=== PATIENT | male | born 1960 | race Caucasian/White ===

== ENCOUNTER 2019-09-06 23:23 | Emergency (ER) | payer SELFPAY ==
[~2019-09-06] VITALS: Ht 185.4 cm; Wt 104.5 kg
[2019-09-06 23:35] VITALS: BP 135/88; PULSE 83; TEMP 99.1
[2019-09-07] MEDS ORDERED: NORCO 325 MG-51 TAB PO (18:26)
[2019-09-07] MEDS ORDERED: FLEXERIL 1010 MG/TAB PO (18:26)
== END 2019-09-07 01:18 | disposition left against medical advice (07) ==
LOC: COL.ER 23:23
DX: M54.12 Radiculopathy, cervical region (principal); F17.210 Nicotine dependence, cigarettes, uncomplicated; Z98.890 Other specified postprocedural states

== ENCOUNTER 2019-09-07 13:46 | Emergency (ER) | payer SELFPAY ==
[~2019-09-07] VITALS: Ht 185.4 cm; Wt 109.1 kg
[2019-09-07 13:46] VITALS: TEMP 98.5
[2019-09-07 14:59] LABS: BASO # 0.1 (0.0-0.2); BASO % 0.8 % (0.0-2.0); EOS # 0.1 (0.0-0.7); EOS % 1.8 % (0-4.0); GRAN # 3.7 (1.4-6.5); GRAN % 54.7 % (42.2-75.2); HEMATOCRIT 42.9 % (42.0-52.0); HEMOGLOBIN 14.6 g/dl (13.5-18.0); LYMPH # 1.9 (1.2-3.4); LYMPH % 28.4 % (20.0-51.0); MEAN CELL VOLUME 98 fl (80.0-100.0); MEAN CORPUSCULAR HEMOGLOBIN 33 pg (27.0-31.0); MEAN CORPUSCULAR HGB CONC 34 g/dl (33.0-37.0); MEAN PLATELET VOLUME 9.3 fl (7.4-10.4); MONO # 0.9 (0.1-0.6); MONO % 13.5 % (1.7-9.3); PLATELET COUNT 229 K/mm3 (130-400); RED BLOOD COUNT 4.38 M/mm3 (4.20-5.60); REDCELL DISTRIBUTION WIDTH-CV 12.7 % (11.5-14.5)
[2019-09-07 15:18] LABS: ALANINE AMINOTRANSFERASE 25 U/L (4-49); ALBUMIN 4.6 gm/dL (3.5-5.0); ALKALINE PHOSPHATASE 55 U/L (50-136); ANION GAP 5 mmol/L (7-16); AST,SGOT 34 U/L (15-37); BILIRUBIN,TOTAL 0.4 mg/dL (0.0-1.0); BLOOD UREA NITROGEN 24 mg/dL (9-20); CALCIUM 9.6 mg/dL (8.4-10.2); CARBON DIOXIDE 28 mmol/L (22-30); CHLORIDE 105 mmol/L (98-107); CREATININE, serum 0.94 (0.66-1.25); GLUCOSE 113 mg/dL (74-106); SODIUM 139 mmol/L (137-145); TOTAL PROTEIN 7.5 gm/dL (6.4-8.2)
[2019-09-07 15:27] LABS: C-REACTIVE PROTEIN < 0.5 mg/dL (0.0-0.9); TROPONIN-I 0.025 ng/mL (0.000-0.035)
[2019-09-07] MEDS ORDERED: NORCO 325 MG-51 TAB PO (18:26)
[2019-09-07] MEDS ORDERED: FLEXERIL 1010 MG/TAB PO (18:26)
[2019-09-07 19:25] VITALS: BP 111/78; PULSE 65
== END 2019-09-07 19:35 | disposition home or self-care (01) ==
LOC: COL.ER 13:46
PROVIDERS: Emergency Medicine
DX: R05 Cough (principal); M54.12 Radiculopathy, cervical region; R07.89 Other chest pain; F17.210 Nicotine dependence, cigarettes, uncomplicated
CPT/HCPCS: J1170; J1885; J2060; J7030

== ENCOUNTER 2020-07-15 15:05 | Emergency (ER) | payer MEDICAID ==
[~2020-07-15] VITALS: Ht 182.9 cm; Wt 110.0 kg
[~2020-07-15 15:05] MED LIST: FLEXERIL 1010 MG/TAB PO; NORCO 325 MG-51 TAB PO
[2020-07-15 15:19] VITALS: TEMP 98.3
[2020-07-15 16:29] LABS: BASO # 0.1 (0.0-0.2); BASO % 0.6 % (0.0-2.0); EOS # 0.2 (0.0-0.7); EOS % 2.1 % (0-4.0); GRAN # 5.4 (1.4-6.5); GRAN % 64.4 % (42.2-75.2); HEMATOCRIT 43.2 % (42.0-52.0); HEMOGLOBIN 15.2 g/dl (13.5-18.0); LYMPH # 1.6 (1.2-3.4); LYMPH % 18.4 % (20.0-51.0); MEAN CELL VOLUME 94 fl (80.0-100.0); MEAN CORPUSCULAR HEMOGLOBIN 33 pg (27.0-31.0); MEAN CORPUSCULAR HGB CONC 35 g/dl (33.0-37.0); MEAN PLATELET VOLUME 9.8 fl (7.4-10.4); MONO # 1.2 (0.1-0.6); MONO % 13.6 % (1.7-9.3); PLATELET COUNT 178 K/mm3 (130-400); RED BLOOD COUNT 4.59 M/mm3 (4.20-5.60); REDCELL DISTRIBUTION WIDTH-CV 13.1 % (11.5-14.5)
[2020-07-15 16:34] LABS: ALBUMIN 4.1 gm/dL (3.5-5.0); BILIRUBIN,TOTAL 0.8 mg/dL (0.0-1.0); C-REACTIVE PROTEIN 3.6 mg/dL (0.0-0.9); CALCIUM 9.6 mg/dL (8.4-10.2); CREATININE, serum 1.06 (0.66-1.25); POTASSIUM 3.7 mmol/L (3.4-5.0); TOTAL PROTEIN 7.1 gm/dL (6.4-8.2)
[2020-07-15 19:15] VITALS: BP 122/60; PULSE 74
[2020-07-15 19:16] LABS: COLLECTION METHOD CLEAN CATCH
[2020-07-15 19:26] LABS: PH 6 (5-8); SQUAMOUS EPITHELIAL None Seen /hpf; URINE APPEARANCE Clear; URINE BACTERIA None Seen /hpf; URINE BILIRUBIN Negative (NEGATIVE); URINE BLOOD Negative (NEGATIVE); URINE COLOR Yellow; URINE GLUCOSE Negative (NEGATIVE); URINE KETONE Negative (NEGATIVE); URINE LEUKOCYTE ESTERASE Negative (NEGATIVE); URINE NITRATE Negative (NEGATIVE); URINE PROTEIN(semi-quant) Negative (NEGATIVE); URINE RBC 0-2 /hpf; URINE UROBILINOGEN Negative (NEGATIVE)
== END 2020-07-15 19:50 | disposition short-term general hospital (02) ==
LOC: COL.ER 15:05
PROVIDERS: Family Medicine
DX: M54.12 Radiculopathy, cervical region (principal); M54.16 Radiculopathy, lumbar region; R32 Unspecified urinary incontinence; F17.210 Nicotine dependence, cigarettes, uncomplicated
CPT/HCPCS: J2270; J2405

== ENCOUNTER 2021-02-28 10:00 | Emergency (ER) | payer MEDICAID ==
[~2021-02-28] VITALS: Ht 185.4 cm; Wt 104.5 kg
[2021-02-28 10:21] VITALS: TEMP 99.1
[2021-02-28 11:08] LABS: BASO # 0.1 K/mm3 (0.0-0.2); BASO % 0.4 % (0.0-2.0); EOS # 0.1 K/mm3 (0.0-0.7); EOS % 0.5 % (0-4.0); GRAN # 11.5 K/mm3 (1.4-6.5); GRAN % 81.3 % (42.2-75.2); HEMATOCRIT 43.2 % (42.0-52.0); LYMPH # 1.3 K/mm3 (1.2-3.4); LYMPH % 9.3 % (20.0-51.0); MEAN CELL VOLUME 93 fl (80.0-100.0); MEAN CORPUSCULAR HEMOGLOBIN 32 pg (27.0-31.0); MEAN CORPUSCULAR HGB CONC 35 g/dl (33.0-37.0); MEAN PLATELET VOLUME 9.6 fl (7.4-10.4); MONO # 1.1 K/mm3 (0.1-0.6); PLATELET COUNT 264 K/mm3 (130-400); RED BLOOD COUNT 4.67 M/mm3 (4.20-5.60); REDCELL DISTRIBUTION WIDTH-CV 12.6 % (11.5-14.5)
[2021-02-28 11:22] LABS: COLLECTION METHOD CLEAN CATCH
[2021-02-28 11:34] LABS: ALBUMIN 4.1 gm/dL (3.5-5.0); BILIRUBIN,TOTAL 0.8 mg/dL (0.2-1.2); CALCIUM 10.3 mg/dL (8.4-10.2); CREATININE, serum 0.94 mg/dL (0.72-1.25); TOTAL PROTEIN 7.6 gm/dL (6.2-8.1)
[2021-02-28 11:40] LABS: MUCOUS Present /lpf; PH 8 (5-8); SQUAMOUS EPITHELIAL None Seen /hpf; URINE APPEARANCE Clear; URINE BACTERIA None Seen /hpf; URINE BILIRUBIN Negative (NEGATIVE); URINE BLOOD Negative (NEGATIVE); URINE COLOR Yellow; URINE GLUCOSE Negative (NEGATIVE); URINE KETONE Negative (NEGATIVE); URINE LEUKOCYTE ESTERASE Negative (NEGATIVE); URINE NITRATE Negative (NEGATIVE); URINE PROTEIN(semi-quant) Negative (NEGATIVE); URINE UROBILINOGEN Negative (NEGATIVE)
[2021-02-28] MEDS ORDERED: ROBAXIN 75750 MG/TAB PO (14:05)
[2021-02-28] MEDS ORDERED: NORCO 325 MG-51 TAB PO ×2 (14:06)
[2021-02-28 14:48] VITALS: BP 142/140; PULSE 76
== END 2021-02-28 14:48 | disposition home or self-care (01) ==
LOC: COL.ER 10:00
PROVIDERS: Physician Assistant
DX: M54.16 Radiculopathy, lumbar region (principal); E87.5 Hyperkalemia; D72.829 Elevated white blood cell count, unspecified; R04.2 Hemoptysis; F17.210 Nicotine dependence, cigarettes, uncomplicated
CPT/HCPCS: J2270; J2360; J2405; Q9967

== ENCOUNTER 2021-03-02 09:00 | Outpatient (RCR) | payer MEDICAID ==
[~2021-03-02 09:00] MED LIST changes: +ROBAXIN 75750 MG/TAB PO
== END 2021-05-07 | disposition home or self-care (01) ==
LOC: MKS.ESL.PT
DX: S32.010S Wedge compression fracture of first lumbar vertebra, sequela (principal); M54.2 Cervicalgia; M54.6 Pain in thoracic spine; M54.17 Radiculopathy, lumbosacral region
CPT/HCPCS: G0283-GP

== ENCOUNTER 2021-03-03 15:00 | Emergency (ER) | payer MEDICAID | END 2021-03-03 16:00 | disposition left against medical advice (07) | LOC: COL.ER 15:00 | DX: R52 Pain, unspecified (principal) ==

== ENCOUNTER → 2021-03-08 | Outpatient (CLI) | payer MEDICAID | LOC: COL.RAD 12:19 | DX: M47.812 Spondylosis without myelopathy or radiculopathy, cervical region (principal); M51.34 Other intervertebral disc degeneration, thoracic region; M48.02 Spinal stenosis, cervical region; M47.816 Spondylosis without myelopathy or radiculopathy, lumbar region; M48.061 Spinal stenosis, lumbar region without neurogenic claudication | CPT/HCPCS: A9585 ==